=== PATIENT | male | born 1955 | race Caucasian/White ===

== ENCOUNTER 2018-11-11 13:45 | Emergency (ER) | payer MEDICARE, MEDICAID ==
[~2018-11-11] VITALS: Ht 170.2 cm; Wt 61.2 kg
[2018-11-11] MEDS ORDERED: MECLIZINE HCL25 MG PO (15:52)
--- NOTE | 2018-11-11 17:19 | EKG ---
[facility] [address] [facility] [place], [place] [address] Signed Normal sinus rhythm Rightward axis Borderline ECG No previous ECGs available Confirmed by MARTA PEREZ MD ([id number] on 11/11/2018 5:19:30 PM Electronically Signed By: MARTA PEREZ MD 11/11/18 1719 PATIENT NAME: RICKY TOVAR Electrocardiogram DATE OF : 51 PHYSICIAN: MARTA PEREZ MD REPORT #: [id number] REPORT IS CONFIDENTIAL AND NOT TO BE RELEASED WITHOUT AUTHORIZATION
== END 2018-11-11 16:13 | disposition home or self-care (01) ==
LOC: ED 13:45
DX: R42 Dizziness and giddiness (principal); F17.200 Nicotine dependence, unspecified, uncomplicated; Z86.73 Personal history of transient ischemic attack (TIA), and cerebral infarction without residual deficits; Z88.0 Allergy status to penicillin
CPT/HCPCS: 93005; 93010; 96372; 99284-25; 99406; J1885

== ENCOUNTER 2024-04-01 14:55 | Emergency (ER) | payer MEDICAID ==
[~2024-04-01] VITALS: Ht 170.2 cm; Wt 54.0 kg
[~2024-04-01 14:55] MED LIST: MECLIZINE HCL25 MG PO
[2024-04-01] MEDS ORDERED: NICOTINE 14 MG/24 HR 1 EA TDSY TD SCH (15:33)
[2024-04-01 15:34] LABS: HEMATOCRIT 44.1 % (35.0-50.0); HEMOGLOBIN 14.8 g/dL (12.0-18.0); LYMPHOCYTES 16.4 % (24-44); MCHC 33.6 g/dl (30-36); MCV 86.1 fl (81-99); MONOCYTES 7.7 % (0-12); NEUTROPHILS 71.9 % (39-80); PLATELET COUNT 288 K/uL (140-440); RBC 5.12 M/ul (4.3-5.7); RDW 14.6 (10.5-15.0)
[2024-04-01] MEDS ORDERED: ACETAMINOPHEN 325 MG TAB PO PRN (15:45)
[2024-04-01 15:49] LABS: BILIRUBIN, URINE NEGATIVE (negative); BLOOD/HGB, URINE TRACE-I (Negative); KETONE, URINE NEGATIVE (Negative); LEUK ESTERASE, URINE NEGATIVE (negative); NITRITE, URINE NEGATIVE (negative)
[2024-04-01 15:52] LABS: BACTERIA, URINE NONE SEEN /hpf (negative); CASTS, URINE NONE SEEN \\lpf; COLLECTION TYPE, URINE CLEAN CATCH; CRYSTALS, URINE NONE SEEN (0-1+); EPITHELIAL CELLS, URINE 0 /lpf (0-1+); RED BLOOD CELLS, URINE 0-1 /hpf (0-5); REFLEX CULTURE, URINE No (No); WHITE BLOOD CELLS, URINE 0-1 /HPF (0-5)
[2024-04-01 15:57] LABS: ACETAMINOPHEN 0 ug/mL (10-30); ALBUMIN 3.5 g/dL (3.4-5.0); ALCOHOL, MEDICAL <3 ng/dL (<3); ALKALINE PHOSPHATASE 104 U/L (46-116); ALT (SGPT) 16 U/L (14-59); ANION GAP 13.1 (7-21); AST (SGOT) 11 U/L (15-37); BILIRUBIN, TOTAL 0.3 ng/dL (0.2-1.0); BUN/CREATININE RATIO 21.35 (6.0-28.6); CALCIUM 9.1 mg/dL (8.5-10.1); CARBON DIOXIDE 28 mmol/L (21-32); CHLORIDE 107 mmol/L (98-107); CREATININE, SERUM 1.03 mg/dL (0.70-1.30); GLOMERULAR FILTRATION RATE,EST 78 mL/min (>60); POTASSIUM 4.1 mmol/L (3.5-5.1); SALICYLATE 2.1 mg/dL (2.8-20.0); TSH, 3RD GENERATION 0.831 uIU/mL (0.358-3.740); UREA NITROGEN 22 mg/dL (7-18)
[2024-04-01 16:00] LABS: AMPHETAMINES, URINE NEGATIVE (NEGATIVE); BARBITURATES, URINE NEGATIVE (NEGATIVE); BENZODIAZEPINE, URINE NEGATIVE (NEGATIVE); BUPRENORPHINE, URINE NEGATIVE (NEGATIVE); CANNABINOID, URINE NEGATIVE (NEGATIVE); COCAINE, URINE NEGATIVE (NEGATIVE); ECSTASY, URINE NEGATIVE (NEGATIVE); FENTANYL, URINE NEGATIVE (NEGATIVE); METHADONE, URINE NEGATIVE (NEGATIVE); OPIATES, URINE NEGATIVE (NEGATIVE); OXYCODONE, URINE NEGATIVE (NEGATIVE); PHENCYCLIDINE, URINE NEGATIVE (NEGATIVE)
[2024-04-01 17:59] VITALS: BP 159/66
== END 2024-04-01 18:00 | disposition home or self-care (01) ==
LOC: ED 14:55
PROVIDERS: Emergency Medicine
DX: R45.851 Suicidal ideations (principal); F17.200 Nicotine dependence, unspecified, uncomplicated; Z86.73 Personal history of transient ischemic attack (TIA), and cerebral infarction without residual deficits; Z88.0 Allergy status to penicillin
CPT/HCPCS: 36415; 80053; 80307; 81001; 81003; 84443; 85025; 99285; G0480